=== PATIENT | male | born 2005 | race Caucasian/White ===

== ENCOUNTER 2023-12-29 01:31 | Emergency (ER) | payer BC, OTHER ==
[2023-12-29] MEDS ORDERED: diphenhydrAMINE 50 MG/ML VIAL ONE (02:09)
[2023-12-29] MEDS ORDERED: Dexamethasone 10 MG/ML VIAL ONE (02:09)
[2023-12-29] MEDS ORDERED: Ketorolac Tromethamine 30 MG (1 mL) VIAL ONE (02:09)
[2023-12-29] MEDS ORDERED: Prochlorperazine 10 MG/2 ML VIAL ONE (02:09)
== END 2023-12-29 03:36 | disposition home or self-care (01) ==
LOC: CSHERS 01:31
DX: G43.909 Migraine, unspecified, not intractable, without status migrainosus (principal)
CPT/HCPCS: 96374; 96375; J0780; J1100; J1200; J1885

== ENCOUNTER 2024-09-27 09:24 | Outpatient (CLI) | payer BC | END 2024-09-27 09:25 | disposition home or self-care (01) | LOC: CSHSLEEP 09:24 | PROVIDERS: ATTEND Family Medicine | DX: G47.419 Narcolepsy without cataplexy (principal); R53.83 Other fatigue; F32.A Depression, unspecified; F41.9 Anxiety disorder, unspecified; G47.33 Obstructive sleep apnea (adult) (pediatric) | CPT/HCPCS: 95810 ==

== ENCOUNTER 2024-10-12 09:09 | Outpatient (CLI) | payer BC | END 2024-10-12 09:10 | disposition home or self-care (01) | LOC: CSHSLEEP 09:09 | PROVIDERS: ATTEND Family Medicine | DX: G47.419 Narcolepsy without cataplexy (principal); R53.83 Other fatigue; F32.A Depression, unspecified; F41.9 Anxiety disorder, unspecified; G47.33 Obstructive sleep apnea (adult) (pediatric) | CPT/HCPCS: 95811 ==